=== PATIENT | female | born 1930 | race Caucasian/White ===

== ENCOUNTER 2017-09-01 14:12 | Emergency (ER) | payer OTHER ==
[2017-09-01] MEDS ORDERED: NA CHLORIDE 0.9% 1,000 ML ONE (14:28)
--- NOTE | 2017-09-01 15:00 | RAD REPORT ---
EXAM DESCRIPTION: CT - Head C Spine Mpr Wo Con - 09/01/2017 2:44 pm CLINICAL HISTORY: Head and neck injury status post fall. Head and neck pain COMPARISON: 2016 TECHNIQUE: Computed axial tomography of the head and cervical spine was obtained. Sagittal and coronal reconstruction was performed. All CT scans are performed using dose optimization technique as appropriate and may include automated exposure control or mA/KV adjustment according to patient size. FINDINGS: An intracranial bleed is not seen. The ventricles are normal in caliber. Mild to moderate low-density areas within periventricular, deep and subcortical white matter likely represent ischemic changes secondary to small vessel disease. An extra-axial fluid collection is not noted. Fluid within the visualized sinuses and mastoids is not seen A cervical fracture is not visualized. Mild posterior subluxation of C3 on C4 is present. No soft tissue swelling is seen. Spondylosis involves mid and distal cervical spine. Mild foraminal and central spinal stenosis is see n IMPRESSION: No acute intracranial abnormality is seen. A cervical fracture is not visualized. Mild anterior subluxation of C3 on C4. If the patient continue s to have symptoms to suggest intracranial /spinal cord/ ligamentous pathology then MRI would be anika mmended
[2017-09-01 15:35] LABS: Protime INR 0.99
[2017-09-01 15:46] LABS: Potassium 4.1 mEq/L (3.6-5.0)
--- NOTE | 2017-09-01 15:47 | EKG ---
Test Date: 2017-09-01 Test Time: 15:05:55 Dock Clerk: HERVE MEASUREMENT RESULTS: Intervals: Rate: 66 [place]: 168 QRSD: 78 QT: 414 QTc: 434 [place]: P: 58 NJ: 168 QRS: -40 T: 36 INTERPRETIVE STATEMENTS: Normal sinus rhythm Left axis deviation Abnormal ECG Compared to ECG 12/28/2015 00:53:10 Left-axis deviation now present Atrial premature complex(es) no longer present Electronically Signed On 09-01-17 15:47:19 CDT by Wale Rhodes
[2017-09-01 15:52] LABS: Bilirubin Direct 0.1 mg/dL (0-0.2); Bilirubin Total 0.5 mg/dL (0.3-1.2); Magnesium 1.9 mg/dL (1.8-2.5); Protein, Total 7.4 g/dL (6.0-8.3)
[2017-09-01 15:54] LABS: CKMB Creatine Kinase MB 6.2 ng/ml (0.3-4.0)
[2017-09-01] MEDS ORDERED: ACETAMINOPHEN 325 MG TABLET ONE (15:56)
[2017-09-01 16:18] LABS: Absolute Lymphocytes (CBC) 1.7 K/uL (0.7-4.9); Absolute Monocytes 0.4 K/uL (0.1-1.3); Absolute Neutrophil 3.1 K/uL (1.8-8.0); Basophils % 0.7 % (0-1.3); Eosinophils % 2.5 % (0-4.4); Hematocrit 29.9 % (36.0-45.0); Lymphocytes % 30.6 % (15.3-44.8); MCH 31.4 pg (27.0-35.0); MCV 91.9 fL (80-100); MPV 7.8 fL (7.6-11.3); Monocytes % 8.2 % (3.3-12.3); RBC Red Blood Cell Count 3.26 M/uL (3.86-4.86)
[2017-09-01] MEDS ORDERED: CEFTRIAXONE/SWI 1gm 1 GM/10 ML SYR ONE (17:31)
--- NOTE | 2017-09-01 18:02 | RAD REPORT ---
EXAM DESCRIPTION: MRI - C Spine Wo Cont - 09/01/2017 5:30 pm CLINICAL HISTORY: Left arm numbness. Neck injury status post fall COMPARISON: September 01, 2017 cat scan TECHNIQUE: Magnetic resonance imaging of the cervical spine was obtained with coronal and sagittal r econstruction FINDINGS: C2-3 level is unremarkable Mild anterior subluxation of C3 on C4 is seen. No abnormal signal is seen within the ligaments to sug gest an acute injury .Small disc bulge is present. Minimal narrowing of the thecal sac is seen. Small osteophytes are noted. Minimal narrowing the right neural foramina is present. C4-5 disc is thinned. Small to moderate central disc osteophyte complex narrows thecal sac which jordon ures 8 millimeters. Minimal narrowing of the neural foramina is noted. C5-6 disc is thinned. A moderate left posterolateral disc herniation is present. Osteophytes are note d. The left lateral recess and left neural foramina are narrowed. Small central disc osteophyte complex is present at C6-7. The thecal sac measures 7 millimeters. Mild narrowing of the neural foramina is noted. C7-T1 is unremarkable. The spinal cord demonstrates normal signal. No significant abnormal signal within the bones is noted. IMPRESSION: Moderate left posterolateral disc herniation C5-6 Small to moderate central disc osteophyte complex C4-5 Small central disc osteophyte complex C6-7 resulting in mild to moderate central spinal stenosis
--- NOTE | 2017-09-01 18:11 | RAD REPORT ---
EXAM DESCRIPTION: CT - Chest Abd Pelvis Wo Con - 09/01/2017 5:36 pm CLINICAL HISTORY: Chest and abdominal pain status post fall COMPARISON: 2013 CT chest TECHNIQUE: Computed axial tomography of the chest, abdomen and pelvis was obtained. Contrast was not requested All CT scans are performed using dose optimization technique as appropriate and may include automated exposure control or mA/KV adjustment according to patient size. FINDINGS: The evaluation of mediastinum, duane, vessels, bowel and solid organs is limited secondary to the lack of IV contrast administration A mediastinal hematoma is not seen. The ascending aorta measures 3.7 centimeters without significant change from the prior exam. The main pulmonary artery remains prominent. A pleural effusion is not present. A pericardial effusion is not seen. A pulmonary contusion is not present The liver, spleen, pancreas, and adrenals appear grossly normal. Renal cortical thinning is present b ilaterally. Extrarenal pelves are noted. The bladder appears grossly normal IMPRESSION: No acute traumatic injury involving the chest, abdomen/pelvis is seen
[2017-09-01 18:21] LABS: Urine Blood 1+ (NEG); Urine Glucose NEGATIVE (NEG); Urine Protein 3+ (NEG); Urine Specific Gravity 1.015 (1.005-1.030); Urine pH 6.5 (5.0-7.0)
--- NOTE | 2017-09-01 18:28 | EDPHYS ---
Physician Documentation [facility] Name: Evelia Neves Age: 87 yrs Sex: Female : 1930 Arrival Date: 09/01/2017 Time: 14:18 Bed 5 Private MD: ED Physician Adeel Cui HPI: 09/01 18:17 This 87 yrs old Female presents to ER via Ambulatory with complaints of Fall hortensia Injury, Dizziness, Nausea. 18:17 Details of fall: The patient fell from an upright position, while walking. Onset: The hortensia symptoms/episode began/occurred 4 day(s) ago. Associated injuries: The patient sustained neck injury, upper back injury, injury to the low back. Severity of symptoms: At their worst the symptoms were mild. Historical: - Allergies: 15:26 Codeine; ae1 15:26 Sulfa (Sulfonamide Antibiotics); ae1 - PMHx: 15:26 Hypertension; Hypothyroidism; ae1 - Immunization history:: Adult Immunizations up to date. - Social history:: Smoking status: Patient/guardian denies using tobacco. ROS: 18:18 Constitutional: Negative for fever, chills, and weight loss, Eyes: Negative for injury, hortensia pain, redness, and discharge, ENT: Negative for injury, pain, and discharge, Cardiovascular: Negative for chest pain, palpitations, and edema, Respiratory: Negative for shortness of breath, cough, wheezing, and pleuritic chest pain, Abdomen/GI: Negative for abdominal pain, nausea, vomiting, diarrhea, and constipation, : Negative for injury, bleeding, discharge, and swelling, MS/Extremity: Negative for injury and deformity, Skin: Negative for injury, rash, and discoloration, Neuro: Negative for headache, weakness, numbness, tingling, and seizure, Psych: Negative for depression, anxiety, suicide ideation, homicidal ideation, and hallucinations, Allergy/Immunology: Negative for hives, rash, and allergies, Endocrine: Negative for neck swelling, polydipsia, polyuria, polyphagia, and marked weight changes, Hematologic/Lymphatic: Negative for swollen nodes, abnormal bleeding, and unusual bruising. 18:18 Back: Positive for decreased range of motion, pain at rest. 18:18 MS/extremity: Positive for Exam: 18:18 Constitutional: This is a well developed, well nourished patient who is awake, alert, hortensia and in no acute distress. Head/Face: Normocephalic, atraumatic. Eyes: Pupils equal round and reactive to light, extra-ocular motions intact. Lids and lashes normal. Conjunctiva and sclera are non-icteric and not injected. Cornea within normal limits. Periorbital areas with no swelling, redness, or edema. ENT: Nares patent. No nasal discharge, no septal abnormalities noted. Tympanic membranes are normal and external auditory canals are clear. Oropharynx with no redness, swelling, or masses, exudates, or evidence of obstruction, uvula midline. Mucous membranes moist. Chest/axilla: Normal chest wall appearance and motion. Nontender with no deformity. No lesions are appreciated. Cardiovascular: Regular rate and rhythm with a normal S1 and S2. No gallops, murmurs, or rubs. Normal PMI, no JVD. No pulse deficits. Respiratory: Lungs have equal breath sounds bilaterally, clear to auscultation and percussion. No rales, rhonchi or wheezes noted. No increased work of breathing, no retractions or nasal flaring. Back: No spinal tenderness. No costovertebral tenderness. Full range of motion. Female : Normal external genitalia. Skin: Warm, dry with normal turgor. Normal color with no rashes, no lesions, and no evidence of cellulitis. MS/ Extremity: Pulses equal, no cyanosis. Neurovascular intact. Full, normal range of motion. Neuro: Awake and alert, GCS 15, oriented to person, place, time, and situation. Cranial nerves II-XII grossly intact. Motor strength 5/5 in all extremities. Sensory grossly intact. Cerebellar exam normal. Normal gait. Psych: Awake, alert, with orientation to person, place and time. Behavior, mood, and affect are within normal limits. 18:18 Neck: C-spine: appears grossly normal, no acute changes, Thyroid: appears normal, Trachea: is midline with no obvious abnormalities. 18:18 Abdomen/GI: Inspection: abdomen appears normal, Bowel sounds: normal, Palpation: mild abdominal tenderness, in the suprapubic area. Vital Signs: 15:24 BP 151 / 72; Pulse 75; Resp 17; Temp 97.8(O); Pulse Ox 100% on R/A; ae1 16:30 BP 181 / 77; Pulse 82; Resp 18; Pulse Ox 100% ; ae1 MDM: 14:21 Patient medically screened. [facility] 09/01 14:23 Order name: Basic Metabolic Panel; Complete Time: 16:54 [facility] 09/01 14:23 Order name: BNP; Complete Time: 16:54 [facility] 09/01 14:23 Order name: CBC with Diff; Complete Time: 16:54 [facility] 09/01 14:23 Order name: Ckmb; Complete Time: 16:54 [facility] 09/01 14:23 Order name: CPK; Complete Time: 16:54 [facility] 09/01 14:23 Order name: LFT's; Complete Time: 16:54 [facility] 09/01 14:23 Order name: Magnesium; Complete Time: 16:54 [facility] 09/01 14:23 Order name: PT-INR; Complete Time: 16:54 [facility] 09/01 14:23 Order name: Ptt, Activated; Complete Time: 16:54 [facility] 09/01 14:23 Order name: Troponin (emerg Dept Use Only); Complete Time: 16:54 [facility] 09/01 14:23 Order name: XRAY Chest (1 view) 09/01 14:23 Order name: Lipase; Complete Time: 16:54 [facility] 09/01 14:23 Order name: Urine Culture 09/01 18:18 Order name: Urine Dipstick--Ancillary (enter results); Complete Time: 18:22 09/01 14:23 Order name: EKG; Complete Time: 14:24 [facility] 09/01 14:23 Order name: Cardiac monitoring; Complete Time: 15:24 [facility] 09/01 14:23 Order name: EKG - Nurse/Tech; Complete Time: 15:24 [facility] 09/01 14:23 Order name: IV Saline Lock; Complete Time: 15:24 [facility] 09/01 14:23 Order name: Labs collected and sent; Complete Time: 15:24 [facility] 09/01 14:23 Order name: O2 Per Protocol; Complete Time: 15:24 [facility] 09/01 14:23 Order name: O2 Sat Monitoring; Complete Time: 15:24 [facility] 09/01 14:23 Order name: Urine Dipstick-Ancillary (obtain specimen); Complete Time: 18:32 [facility] 09/01 14:32 Order name: CT Head C Spine; Complete Time: 16:54 [facility] 09/01 15:45 Order name: Labs - recollect needed; Complete Time: 16:06 09/01 17:03 Order name: C Spine Wo Cont; Complete Time: 18:15 EDSD 09/01 17:12 Order name: CT Chest Abdomen Pelvis W/O Contrast: no oral , no iv; Complete Time: 18:15 [facility] 09/01 16:58 Order name: Bladder Scanner: pvr greater than 100, place benson; Complete Time: 18:31 [facility] 09/01 18:22 Order name: PO challenge; Complete Time: 18:26 [facility] Administered Medications: 15:23 Drug: NS 0.9% 1000 ml Route: IV; Rate: 125 ml/hr; Site: left antecubital; ae1 16:00 Drug: Tylenol 650 mg Route: PO; ae1 18:26 Follow up: Response: Pain is decreased ae1 18:26 Drug: Rocephin - (cefTRIAXone) 1 grams Route: IVPB; Infused Over: 30 mins; Site: left ae1 antecubital; Disposition: 09/01/17 18:27 Discharged to Home. Impression: Fall due to bumping against object, Weakness, Cystitis, Superficial injury of head, Essential (primary) hypertension. - Condition is Stable. - Discharge Instructions: Dysuria, Fall Prevention and Home Safety, Weakness, Fatigue, Fall Prevention and Home Safety, [id number]-wa-[id number], Weakness, [id number]. - Prescriptions for Cipro 250 mg Oral Tablet - take 1 tablet by ORAL route every 12 hours; 14 tablet. - Medication Reconciliation Form, Thank You Letter, Antibiotic Education, Prescription Opioid Use form. - Follow up: Private Physician; When: 2 - 3 days; Reason: Recheck today's complaints, Re-evaluation by your physician. - Problem is new. - Symptoms have improved. Signatures: Dispatcher [employer] [facility] Adeel Cui MD MD cha Gallardo, Ana ag Elliott, Andrea, RN RN ae1 Corrections: (The following items were deleted from the chart) 14:33 14:24 Head Brain Wo Cont+CT.RAD.BRZ ordered. [facility] 18:28 18:27 09/01/2017 18:27 Discharged to Home. Impression: Fall due to bumping against hortensia object; Weakness; Cystitis; Superficial injury of head. Condition is Stable. Forms are Medication Reconciliation Form, Thank You Letter, Antibiotic Education, Prescription Opioid Use. Follow up: Private Physician; When: 2 - 3 days; Reason: Recheck today's complaints, Re-evaluation by your physician. Problem is new. Symptoms have improved. [facility] 18:49 18:28 09/01/2017 18:27 Discharged to Home. Impression: Fall due to bumping against ae1 object; Weakness; Cystitis; Superficial injury of head; Essential (primary) hypertension. Condition is Stable. Discharge Instructions: Dysuria, Fall Prevention and Home Safety, Weakness, Fatigue, Fall Prevention and Home Safety, [id number], Weakness, Zibl-ey-[id number]. Prescriptions for Cipro 250 mg Oral Tablet - take 1 tablet by ORAL route every 12 hours; 14 tablet. and Forms are Medication Reconciliation Form, Thank You Letter, Antibiotic Education, Prescription Opioid Use. Follow up: Private Physician; When: 2 - 3 days; Reason: Recheck today's complaints, Re-evaluation by your physician. Problem is new. Symptoms have improved. [facility]
--- NOTE | 2017-09-01 18:28 | ER ---
Nurse's Notes [facility] Name: Evelia Neves Age: 87 yrs Sex: Female : 1930 Arrival Date: 09/01/2017 Time: 14:18 Bed 5 Private MD: Diagnosis: Fall due to bumping against object;Weakness;Cystitis;Superficial injury of head;Essential (primary) hypertension Presentation: 09/01 14:33 Presenting complaint: Patient states: "I fell on August 28, hit the back of my head and jl7 now my whole body is hurting from my head to my toes." Denies LOC. Care prior to arrival: None. 14:33 Acuity: CHAVA 3 jl7 14:33 Method Of Arrival: Ambulatory 7 18:48 Transition of care: patient was not received from another setting of care. Onset of ae1 symptoms was August 28, 2017. Initial Sepsis Screen: Does the patient meet any 2 criteria? No. Patient's initial sepsis screen is negative. Does the patient have a suspected source of infection? No. Patient's initial sepsis screen is negative. Triage Assessment: 17:32 General: Appears in no apparent distress. ae1 Historical: - Allergies: 15:26 Codeine; ae1 15:26 Sulfa (Sulfonamide Antibiotics); ae1 - PMHx: 15:26 Hypertension; Hypothyroidism; ae1 - Immunization history:: Adult Immunizations up to date. - Social history:: Smoking status: Patient/guardian denies using tobacco. Screenin:24 Abuse screen: Denies threats or abuse. Nutritional screening: No deficits noted. ae1 Tuberculosis screening: No symptoms or risk factors identified. Fall Risk None identified. Assessment: 14:25 Reassessment: Dr. Cui at bedside. jl7 14:30 General: Appears in no apparent distress. comfortable, slender, well groomed, Behavior ae1 is calm, cooperative, quiet. Pain: Denies pain. Neuro: Level of Consciousness is awake, alert, obeys commands, Oriented to person, place, time, situation. Cardiovascular: Heart tones S1 S2 present Patient's skin is warm and dry. Respiratory: Airway is patent Respiratory effort is even, unlabored, Respiratory pattern is regular, symmetrical, Breath sounds are clear bilaterally. Breath sounds are diminished bilaterally. GI: Reports nausea. : Reports urgency, urinary frequency, foul urine odor. EENT: wears glasses. Derm: Skin is dry, Skin is pale, Skin temperature is warm. Musculoskeletal: No signs and/or symptoms reported regarding the musculoskeletal system. 14:32 Reassessment: Pt to CT. jl7 15:06 Reassessment: Patient appears in no apparent distress at this time. Radiology at ae1 bedside obtaining chest x-ray. 16:24 Reassessment: Patient appears in no apparent distress at this time. Patient and/or ae1 family updated on plan of care and expected duration. Pain level reassessed. Vital Signs: 15:24 BP 151 / 72; Pulse 75; Resp 17; Temp 97.8(O); Pulse Ox 100% on R/A; ae1 16:30 BP 181 / 77; Pulse 82; Resp 18; Pulse Ox 100% ; ae1 ED Course: 14:18 Patient arrived in ED. mr 14:21 Adeel Cui MD is Attending Physician. [facility] 14:21 Solomon Trevino, DOMONIQUE is Primary Nurse. ae1 14:35 Triage completed. jl7 14:44 CT Head C Spine In Process Unspecified. EDMS 14:46 CT completed. Patient tolerated procedure well. Patient moved back from CT. nj 15:06 Arm band placed on right wrist. ae1 15:10 X-ray completed. Portable x-ray completed in exam room. Patient tolerated procedure mh1 well. 15:12 XRAY Chest (1 view) In Process Unspecified. EDMS 15:26 Placed in gown. Bed in low position. Call light in reach. Side rails up X 1. Adult w/ ae1 patient. quality assurance monitor body on. Pulse ox on. NIBP on. Warm blanket given. 15:26 Inserted saline lock: 22 gauge in left antecubital area, using aseptic technique. Blood ae1 collected. 15:34 EKG done, by windows laptop technician. reviewed by Adeel Cui MD. at1 17:18 Patient moved to MRI via wheelchair. em2 17:19 C Spine Wo Cont In Process Unspecified. EDMS 17:35 CT Chest Abdomen Pelvis W/O Contrast: no oral , no iv In Process Unspecified. EDMS 17:38 MRI completed. Patient tolerated well. Patient moved to CT. em2 18:48 No provider procedures requiring assistance completed. IV discontinued, intact, ae1 bleeding controlled, No redness/swelling at site. Pressure dressing applied. Administered Medications: 15:23 Drug: NS 0.9% 1000 ml Route: IV; Rate: 125 ml/hr; Site: left antecubital; ae1 16:00 Drug: Tylenol 650 mg Route: PO; ae1 18:26 Follow up: Response: Pain is decreased ae1 18:26 Drug: Rocephin - (cefTRIAXone) 1 grams Route: IVPB; Infused Over: 30 mins; Site: left ae1 antecubital; Outcome: 18:27 Discharge ordered by . hortensia 18:49 Discharged to home via wheelchair, with significant other. ae1 18:49 Condition: stable 18:49 Discharge instructions given to patient, Instructed on discharge instructions, follow up and referral plans. Demonstrated understanding of instructions, Prescriptions given X 1. 18:49 Patient left the ED. ae1 Signatures: Dispatcher [employer] EDMS Adeel Cui MD MD cha Rivera, Maria Kanika Coleman mh1 Saroj Lancaster em2 Sherly copeland, pododermatologist EKG Tat1 Solomon Trevino, DOMONIQUE RN ae1 John Chambers Jahala, RN RN jl7 Corrections: (The following items were deleted from the chart) 18:31 18:29 Reassessment: Patient assisted to bathroom via wheelchair and walker once in the ae1 restroom, ae1
--- NOTE | 2017-09-01 18:33 | RAD REPORT ---
EXAM DESCRIPTION: Bird Single View09/01/2017 3:11 pm CLINICAL HISTORY: Chest pain COMPARISON: 2016 FINDINGS: Areas of scarring are present within the lung bases. The lungs appear clear of acute infiltrate. The heart is normal size IMPRESSION: No acute abnormalities displayed
[2017-09-01 19:03] VITALS: TEMP 97.8; O2SAT 100
[2017-09-01 19:04] VITALS: BP 181/77
== END 2017-09-01 18:49 | disposition home or self-care (01) ==
LOC: ER 14:12
DX: S00.90XA Unspecified superficial injury of unspecified part of head, initial encounter (principal); N30.90 Cystitis, unspecified without hematuria; I10 Essential (primary) hypertension; E03.9 Hypothyroidism, unspecified; W18.09XA Striking against other object with subsequent fall, initial encounter; Y93.01 Activity, walking, marching and hiking; Y92.9 Unspecified place or not applicable; Z88.2 Allergy status to sulfonamides; Z88.5 Allergy status to narcotic agent
CPT/HCPCS: 36415; 70450; 71045; 71250; 72125; 72141; 74176; 80048; 80076; 81003; 82550; 82553; 83690; 83735; 83880; 84484; 85025; 85610; 85730; 87086; 87088; 93005; 96374; 99285; J0696; J7030

== ENCOUNTER 2018-01-22 10:33 | Observation (INO) | payer OTHER ==
[2018-01-22 11:11] LABS: Absolute Lymphocytes (CBC) 1.8 K/uL (0.7-4.9); Absolute Monocytes 0.3 K/uL (0.1-1.3); Basophils % 0.9 % (0-1.3); Eosinophils % 1.7 % (0-4.4); Hematocrit 33.1 % (36.0-45.0); Lymphocytes % 34.7 % (15.3-44.8); MCH 32.2 pg (27.0-35.0); MCV 91.4 fL (80-100); MPV 8.1 fL (7.6-11.3); Monocytes % 5.8 % (3.3-12.3); RBC Red Blood Cell Count 3.63 M/uL (3.86-4.86)
[2018-01-22] MEDS ORDERED: CEFTRIAXONE/SWI 1gm 1 GM/10 ML SYR ONE (11:12)
[2018-01-22] MEDS ORDERED: NA CHLORIDE 0.9% 500 ML ONE (11:12)
--- NOTE | 2018-01-22 11:26 | RAD REPORT ---
EXAM DESCRIPTION: CT - Head Brain Wo Cont - 01/22/2018 11:17 am CLINICAL HISTORY: ams Drowsiness COMPARISON: HEAD BRAIN W O CONTRAST dated 03/13/2014; HEAD BRAIN W O CONTRAST dated 10/15/2013 TECHNIQUE: All CT scans are performed using dose optimization technique as appropriate and may inclu de automated exposure control or mA/KV adjustment according to patient size. FINDINGS: No intracranial hemorrhage, hydrocephalus or extra-axial fluid collection.Moderate general ized brain atrophy is present with moderate periventricular and deep white matter chronic microvascul ar ischemic changes.No areas of brain edema or evidence of midline shift. Mild bony thickening in the right maxillary antrum wall is seen, incompletely assessed. The paranasal sinuses and mastoids are grossly clear. The calvarium is intact. IMPRESSION: No acute intracranial abnormality.
[2018-01-22 11:28] LABS: Protime INR 1.04
[2018-01-22 12:19] LABS: ALT/SGPT 14 U/L (12-78); AST/SGOT 22 U/L (15-37); Alkaline Phosphatase 97 U/L (45-117); BUN Blood Urea Nitrogen 76 mg/dL (7-18); Bicarbonate 18 mmol/L (21-32); Bilirubin Direct 0.1 mg/dL (0-0.2); Bilirubin Total 0.5 mg/dL (0.2-1.0); CKMB Creatine Kinase MB 3.5 ng/mL (0.3-3.6); Creatine Phosphokinase 115 U/L (26-192); Glucose Level 102 mg/dL (74-106); Lipase 1173 U/L (73-393); Magnesium 2.3 mg/dL (1.8-2.4); Potassium 4.4 mmol/L (3.5-5.1); Protein, Total 7.8 g/dL (6.4-8.2); Sodium Level 137 mmol/L (136-145); Troponin (Emerg Dept Use Only) < 0.02 ng/mL (0.0-0.045)
--- NOTE | 2018-01-22 13:14 | EKG ---
Test Date: 2018-01-22 Test Time: 11:03:03 Garnett Feeder: HERVE MEASUREMENT RESULTS: Intervals: Rate: 63 NM: 150 QRSD: 88 QT: 434 QTc: 444 [place]: P: 64 NM: 150 QRS: -52 T: 64 INTERPRETIVE STATEMENTS: Normal sinus rhythm Left anterior fascicular block Abnormal ECG Compared to ECG 09/01/2017 15:05:55 no significant change from previous ECG Electronically Signed On 01-22-18 13:14:13 CDT by Wale Rhodes
[2018-01-22 13:38] LABS: Barbiturates NEGATIVE (NEGATIVE); Benzodiazepines POSITIVE (NEGATIVE); Cocaine NEGATIVE (NEGATIVE); METHAMPHETAM NEGATIVE (NEGATIVE); Methadone NEGATIVE (NEGATIVE); Opiates NEGATIVE (NEGATIVE); Phencyclidine NEGATIVE (NEGATIVE); THC Cannibis NEGATIVE (NEGATIVE)
--- NOTE | 2018-01-22 14:36 | RAD REPORT ---
EXAM DESCRIPTION: US - Abdomen Exam Limited - 01/22/2018 2:28 pm CLINICAL HISTORY: Abdominal pain, pancreatitis history COMPARISON: None. FINDINGS: No gallstones, sludge or other abnormalities within the gallbladder lumen. There is no wal l thickening or pericholecystic fluid. No common duct stone or biliary tree dilatation identified. IMPRESSION: Normal gallbladder and biliary tree ultrasound.
--- NOTE | 2018-01-22 14:51 | ER ---
Nurse's Notes [facility] Name: Evelia Neves Age: 87 yrs Sex: Female : 1930 Arrival Date: 01/22/2018 Time: 10:34 Bed 20 Private MD: Diagnosis: Acute pancreatitis, unspecified Presentation: 01/22 10:35 Presenting complaint: EMS states: granddaughter called EMS to home, pt is apparently hj been noticed to have episodes of AMS, been seeing people, pt is A\T\O x2 on scene, reports to have decreased appetite and generalized weakness; BP- 190/100; BGL- 122; T- 98.0; HR- 62; SR; 18G R AC;. Transition of care: patient was not received from another setting of care. Onset of symptoms was January 22, 2018. Risk Assessment: Do you want to hurt yourself or someone else? Patient reports no desire to harm self or others. Initial Sepsis Screen: Does the patient meet any 2 criteria? No. Patient's initial sepsis screen is negative. Does the patient have a suspected source of infection? No. Patient's initial sepsis screen is negative. Care prior to arrival: IV initiated. 18 GA, in the right antecubital area. 10:35 Method Of Arrival: EMS: [facility] 10:35 Acuity: CHAVA 3 hj Triage Assessment: 10:42 General: Appears in no apparent distress. uncomfortable, Behavior is calm, cooperative, hj appropriate for age. Pain: Denies pain. EENT: No signs and/or symptoms were reported regarding the EENT system. Neuro: Level of Consciousness is awake, alert, obeys commands, Oriented to person, place, time, situation, Appropriate for age. Cardiovascular: Capillary refill < 3 seconds Patient's skin is warm and dry. Respiratory: Airway is patent Respiratory effort is even, unlabored, Respiratory pattern is regular, symmetrical. GI: No signs and/or symptoms were reported involving the gastrointestinal system. : No signs and/or symptoms were reported regarding the genitourinary system. : smells urine;. Derm: No signs and/or symptoms reported regarding the dermatologic system. Musculoskeletal: No signs and/or symptoms reported regarding the musculoskeletal system. Historical: - Allergies: 10:39 Codeine; hj 10:39 Sulfa (Sulfonamide Antibiotics); hj - Home Meds: 13:01 levothyroxine 100 mcg tab 1 tab once daily [Active]; sodium bicarbonate and sodium hj citrate oral oral [Active]; furosemide 40 mg Oral tab 1 tab 3 times per day [Active]; gabapentin 300 mg oral cap 1 cap 3 times per day [Active]; fluoxetine 40 mg Oral cap 1 cap once daily [Active]; - PMHx: 10:39 Hypertension; Hypothyroidism; hj - PSHx: 10:39 Unable to obtain; hj - Immunization history:: Adult Immunizations up to date. - Social history:: Smoking status: Patient/guardian denies using tobacco, Patient/guardian denies using alcohol, Patient/guardian denies using alcohol, street drugs, The patient lives with family. - Ebola Screening: : Patient negative for fever greater than or equal to 101.5 degrees Fahrenheit, and additional compatible Ebola Virus Disease symptoms Patient denies exposure to infectious person Patient denies travel to an Ebola-affected area in the 21 days before illness onset. - Family history:: not pertinent. Screenin:46 Abuse screen: Denies threats or abuse. Denies injuries from another. Nutritional hj screening: No deficits noted. Tuberculosis screening: No symptoms or risk factors identified. Fall Risk None identified. Assessment: 10:47 Reassessment: see triage for assessment; provider in room;. hj 11:16 Reassessment: Patient and/or family updated on plan of care and expected duration. Pain hj level reassessed. Patient is alert, oriented x 3, equal unlabored respirations, skin warm/dry/pink. wheeled to XRAY;. 12:48 Reassessment: Patient and/or family updated on plan of care and expected duration. Pain hj level reassessed. Patient is alert, oriented x 3, equal unlabored respirations, skin warm/dry/pink. in room;. 13:08 Reassessment: Patient and/or family updated on plan of care and expected duration. Pain hj level reassessed. Patient is alert, oriented x 3, equal unlabored respirations, skin warm/dry/pink. in the bathroom with daughter for urine sample;. 13:23 Reassessment: Patient and/or family updated on plan of care and expected duration. Pain hj level reassessed. Patient is alert, oriented x 3, equal unlabored respirations, skin warm/dry/pink. awaiting results and POC;. 14:13 Reassessment: Patient and/or family updated on plan of care and expected duration. Pain hj level reassessed. Patient is alert, oriented x 3, equal unlabored respirations, skin warm/dry/pink. granddaughter Lavinia called; to call her back for f/u info; ([phone]). 14:17 Reassessment: Us tech in room;. hj 15:10 Reassessment: awaiting room placement;. hj 16:01 Reassessment: Patient and/or family updated on plan of care and expected duration. Pain hj level reassessed. Patient is alert, oriented x 3, equal unlabored respirations, skin warm/dry/pink. awaiting room placement; no other concers;. 16:32 Reassessment: Patient and/or family updated on plan of care and expected duration. Pain hj level reassessed. Patient is alert, oriented x 3, equal unlabored respirations, skin warm/dry/pink. provided snacks of sand which and apple juice;. Vital Signs: 10:45 BP 190 / 74; Pulse 66; Resp 18; Temp 98.3(O); Pulse Ox 100% on R/A; Weight 58.97 kg; hj Height 5 ft. 4 in. (162.56 cm); Pain 0/10; 12:15 BP 197 / 65; Pulse 64; Resp 18; Pulse Ox 100% on R/A; hj 12:49 BP 196 / 68; Pulse 63; Resp 18; Pulse Ox 100% on R/A; hj 13:24 BP 195 / 65; Pulse 65; Resp 18; Pulse Ox 100% on R/A; hj 14:47 BP 189 / 69; Pulse 67; Resp 18; Pulse Ox 100% on R/A; hj 15:00 BP 188 / 74; Pulse 69; Resp 18; Pulse Ox 100% on R/A; hj 16:02 BP 188 / 70; Pulse 68; Resp 18; Pulse Ox 100% on R/A; hj 10:45 Body Mass Index 22.31 (58.97 kg, 162.56 cm) ED Course: 10:34 Patient arrived in ED. hj 10:38 Triage completed. hj 10:44 Rachel Nicole MD is Attending Physician. ma2 10:46 Arm band placed on right wrist. hj 10:46 Patient has correct armband on for positive identification. Bed in low position. Call hj light in reach. Side rails up X2. 10:46 Maintain EMS IV. Dressing intact. Good blood return noted. Site clean \T\ dry. Gauge \T\ hj site: 18g R AC;. 10:52 Carlito Friedman, DOMONIQUE is Primary Nurse. hj 11:[address] via stretcher. sw 11:13 First set of blood cultures drawn by me, by venipuncture 23G to left ac. dh3 11:16 CT completed. Patient tolerated procedure well. Patient moved back from CT. sw 11:17 CT Head Brain wo Cont In Process Unspecified. EDMS 11:30 Second set of blood cultures drawn by me, by venipuncture 23G to left ac. dh3 14:16 Abdomen Limited US In Process Unspecified. EDMS 14:17 Ultrasound completed. Patient tolerated well. Note: DONE PORTABLE/ER. aa4 14:50 Tanner Xie DO is Hospitalizing Provider. ma2 17:09 No provider procedures requiring assistance completed. Patient admitted, IV remains in hj place. intact. Administered Medications: 10:51 Drug: NS 0.9% 500 ml Route: IV; Rate: 500 bolus; Site: right antecubital; hj 12:00 Follow up: IV Status: Completed infusion; IV Intake: 500ml hj 11:25 Drug: Rocephin 1 grams Route: IV; Rate: calculated rate; Site: right antecubital; hj 11:45 Follow up: IV Status: Completed infusion hj Intake: 12:00 IV: 500ml; Total: 500ml. Outcome: 14:51 Decision to Hospitalize by Provider. ma2 17:09 Admitted to Tele accompanied by tech, via wheelchair, room 405, with chart, Report hj called to DOMONIQUE Durand 17:09 Condition: stable 17:09 Instructed on the need for admit, Demonstrated understanding of instructions. 17:10 Patient left the ED. Signatures: Dispatcher [employer] EDMS Sherly Monahan aa4 Lavinia Novak Carlito Friedman RN RN hj Herrera, Deanna 3 Rachel Nicole MD MD ma2
--- NOTE | 2018-01-22 14:52 | EDPHYS ---
Physician Documentation [facility] Name: Evelai Neves Age: 87 yrs Sex: Female : 1930 Arrival Date: 01/22/2018 Time: 10:34 Bed 20 Private MD: ED Physician Rachel Nicole HPI: 01/22 11:14 This 87 yrs old Female presents to ER via EMS with complaints of Altered ma2 Mental Status. 11:14 The patient presents with confusion, trouble concentrating. Onset: The symptoms/episode ma2 began/occurred gradually, 3 day(s) ago. Possible causes: drug use, head injury, low blood sugar, sepsis, unknown. Associated signs and symptoms: Pertinent positives: dysuria , Pertinent negatives: abdominal pain, agitation, ataxia, combativeness, diaphoresis, diarrhea, dizziness, headache, numbness, not shortness of breath, vomiting, weakness. Current symptoms: In the emergency department the patient's symptoms are unchanged from the initial presentation. [facility] grand daughter called that she is confused and been sleepy all the time she has bad urine smell, does not answer all question . Historical: - Allergies: 10:39 Codeine; hj 10:39 Sulfa (Sulfonamide Antibiotics); hj - Home Meds: 13:01 levothyroxine 100 mcg tab 1 tab once daily [Active]; sodium bicarbonate and sodium hj citrate oral oral [Active]; furosemide 40 mg Oral tab 1 tab 3 times per day [Active]; gabapentin 300 mg oral cap 1 cap 3 times per day [Active]; fluoxetine 40 mg Oral cap 1 cap once daily [Active]; - PMHx: 10:39 Hypertension; Hypothyroidism; hj - PSHx: 10:39 Unable to obtain; hj - Immunization history:: Adult Immunizations up to date. - Social history:: Smoking status: Patient/guardian denies using tobacco, Patient/guardian denies using alcohol, Patient/guardian denies using alcohol, street drugs, The patient lives with family. - Ebola Screening: : Patient negative for fever greater than or equal to 101.5 degrees Fahrenheit, and additional compatible Ebola Virus Disease symptoms Patient denies exposure to infectious person Patient denies travel to an Ebola-affected area in the 21 days before illness onset. - Family history:: not pertinent. ROS: 11:14 ENT: Negative for injury, pain, and discharge, Abdomen/GI: Negative for abdominal pain, ma2 nausea, diarrhea, and constipation, Back: Negative for injury and pain, MS/Extremity: Negative for injury and deformity, Skin: Negative for injury, rash, and discoloration, Neuro: Negative for headache, weakness, numbness, tingling, and seizure, Allergy/Immunology: Negative for hives, rash, and allergies. 11:14 Constitutional: Positive for malaise. 11:14 Constitutional: Negative for body aches, chills, fever. 11:14 : Positive for urinary symptoms, Negative for flank pain, vaginal discharge, vaginal itching. Exam: 11:14 ENT: Nares patent. No nasal discharge, no septal abnormalities noted. Tympanic ma2 membranes are normal and external auditory canals are clear. Oropharynx with no redness, swelling, or masses, exudates, or evidence of obstruction, uvula midline. Mucous membranes moist. Neck: Trachea midline, no thyromegaly or masses palpated, and no cervical lymphadenopathy. Supple, full range of motion without nuchal rigidity, or vertebral point tenderness. No Meningismus. Chest/axilla: Normal chest wall appearance and motion. Nontender with no deformity. No lesions are appreciated. Cardiovascular: Regular rate and rhythm with a normal S1 and S2. No gallops, murmurs, or rubs. Normal PMI, no JVD. No pulse deficits. Respiratory: Lungs have equal breath sounds bilaterally, clear to auscultation and percussion. No rales, rhonchi or wheezes noted. No increased work of breathing, no retractions or nasal flaring. Abdomen/GI: Soft, non-tender, with normal bowel sounds. No distension or tympany. No guarding or rebound. No evidence of tenderness throughout. 11:14 Constitutional: The patient appears alert, confused 11:14 Neuro: Orientation: is normal, Mentation: is normal, confused, awake, Memory: appropriate for stated age, Cranial nerves: grossly normal, Motor: is normal, Sensation: is normal. Vital Signs: 10:45 BP 190 / 74; Pulse 66; Resp 18; Temp 98.3(O); Pulse Ox 100% on R/A; Weight 58.97 kg; hj Height 5 ft. 4 in. (162.56 cm); Pain 0/10; 12:15 BP 197 / 65; Pulse 64; Resp 18; Pulse Ox 100% on R/A; hj 12:49 BP 196 / 68; Pulse 63; Resp 18; Pulse Ox 100% on R/A; hj 13:24 BP 195 / 65; Pulse 65; Resp 18; Pulse Ox 100% on R/A; hj 14:47 BP 189 / 69; Pulse 67; Resp 18; Pulse Ox 100% on R/A; hj 15:00 BP 188 / 74; Pulse 69; Resp 18; Pulse Ox 100% on R/A; hj 16:02 BP 188 / 70; Pulse 68; Resp 18; Pulse Ox 100% on R/A; hj 10:45 Body Mass Index 22.31 (58.97 kg, 162.56 cm) hj MDM: 10:44 Patient medically screened. ma2 11:14 Differential Diagnosis: electrolyte abnormality, alcohol intoxication, hypoglycemia, ma2 intracranial bleed, sepsis, UTI, volume depletion. Data reviewed: vital signs, nurses notes, lab test result(s). Counseling: I had a detailed discussion with the patient and/or guardian regarding: the historical points, exam findings, and any diagnostic results supporting the discharge/admit diagnosis, the presence of at least one elevated blood pressure reading (>120/80) during this emergency department visit, the need for further work-up and treatment in the hospital. Response to treatment: the patient's symptoms have markedly improved after treatment. 14:49 ED course: acute pancreatitis discussed with dr. Xie, . or2 01/22 10:51 Order name: UDS; Complete Time: 14:03 2 01/22 10:51 Order name: Basic Metabolic Panel; Complete Time: 12:35 2 01/22 10:51 Order name: CBC with Diff; Complete Time: 12:21 2 01/22 10:51 Order name: Ckmb; Complete Time: 12:35 ma2 01/22 10:51 Order name: CPK; Complete Time: 12:35 2 01/22 10:51 Order name: Hepatic Function; Complete Time: 12:35 2 01/22 10:51 Order name: Lipase; Complete Time: 12:35 ma2 01/22 10:51 Order name: Magnesium; Complete Time: 12:35 ma2 01/22 10:51 Order name: Protime (+inr); Complete Time: 12:21 ma2 01/22 10:51 Order name: Ptt, Activated; Complete Time: 12:21 or2 01/22 10:51 Order name: Troponin (emerg Dept Use Only); Complete Time: 12:35 ma2 01/22 10:51 Order name: Lactate; Complete Time: 12:21 or2 01/22 10:51 Order name: Blood Culture Adult (2) or2 01/22 14:47 Order name: Urine Dipstick--Ancillary (enter results) bd 01/22 15:43 Order name: T4 Free EDOR 01/22 15:43 Order name: Thyroid Stimulating Hormone EDOR 01/22 15:43 Order name: Comprehensive Metabolic Panel EDOR 01/22 15:43 Order name: Comprehensive Metabolic Panel [facility] 01/22 15:43 Order name: Comprehensive Metabolic Panel [facility] 01/22 15:43 Order name: Comprehensive Metabolic Panel EDOR 01/22 15:43 Order name: Lipase EDMS 01/22 15:43 Order name: Lipase EDMS 01/22 15:43 Order name: Lipase EDMS 01/22 15:43 Order name: Lipase EDMS 01/22 15:43 Order name: Lipid Profile EDMS 01/22 15:43 Order name: Lipid Profile EDMS 01/22 15:43 Order name: Magnesium EDMS 01/22 15:43 Order name: Magnesium EDMS 01/22 15:43 Order name: Magnesium EDMS 01/22 15:43 Order name: Magnesium EDMS 01/22 10:51 Order name: CT Head Brain wo Cont; Complete Time: 12:21 [facility] 01/22 10:51 Order name: EKG; Complete Time: 10:52 or2 01/22 10:51 Order name: Cardiac monitoring; Complete Time: 10:52 or2 01/22 10:51 Order name: EKG - Nurse/Tech; Complete Time: 11:09 ma2 01/22 10:51 Order name: IV Saline Lock; Complete Time: 11:10 ma2 01/22 10:51 Order name: Labs collected and sent; Complete Time: 11:10 ma2 01/22 10:51 Order name: NPO; Complete Time: 10:53 ma2 01/22 10:51 Order name: O2 Per Protocol; Complete Time: 10:53 or2 01/22 10:51 Order name: O2 Sat Monitoring; Complete Time: 10:53 ma2 01/22 10:51 Order name: Urine Dipstick-Ancillary (obtain specimen); Complete Time: 13:16 [facility] 01/22 14:06 Order name: Abdomen Limited US; Complete Time: 14:45 [facility] 01/22 15:43 Order name: Blood Culture [facility] 01/22 15:43 Order name: Urine Culture [facility] 01/22 15:44 Order name: CONS Physician Consult [facility] 01/22 15:44 Order name: Renal EDOR Administered Medications: 10:51 Drug: NS 0.9% 500 ml Route: IV; Rate: 500 bolus; Site: right antecubital; 12:00 Follow up: IV Status: Completed infusion; IV Intake: 500ml 11:25 Drug: Rocephin 1 grams Route: IV; Rate: calculated rate; Site: right antecubital; 11:45 Follow up: IV Status: Completed infusion Disposition: 01/22/18 14:51 Hospitalization ordered by Tanner Xie for Observation. Preliminary diagnosis is Acute pancreatitis, unspecified. - Bed requested for Telemetry/MedSurg (observation). - Status is Observation. - Condition is Stable. - Problem is new. - Symptoms are unchanged. UTI on Admission? No Signatures: Dispatcher [employer] Val Mosquera RN RN dw Nieto, Roman, MD MD rn Joaquin, Henry, RN RN hj Alzahri, Mohammad, MD MD ma2 Corrections: (The following items were deleted from the chart) 16:53 14:51 Hospitalization Ordered by Tanner Xie DO for Observation. Preliminary diagnosis is Acute pancreatitis, unspecified. Bed requested for Telemetry/MedSurg (observation). Status is Observation. Condition is Stable. Problem is new. Symptoms are unchanged. UTI on Admission? No. ma2 17:10 16:53 01/22/2018 14:51 Hospitalization Ordered by Tanner Xie DO for Observation. Preliminary diagnosis is Acute pancreatitis, unspecified. Bed requested for Telemetry/MedSurg (observation). Status is Observation. Condition is Stable. Problem is new. Symptoms are unchanged. UTI on Admission? No. dw
[2018-01-22] MEDS ORDERED: GABAPENTIN 300 MG CAP PO PRN (15:33)
[2018-01-22] MEDS ORDERED: ONDANSETRON 4 MG/2 ML VIAL IV PRN (15:33)
--- NOTE | 2018-01-22 15:51 | P.HP ---
Certification for Inpatient Patient admitted to: Observation With expected LOS: <2 Midnights Patient will require the following post-hospital care: None Practitioner: I am a practitioner with admitting privileges, knowledge of patient current condition, hospital course, and medical plan of care. Services: Services provided to patient in accordance with Admission requirements found in Title 42 Section 412.3 of the Code of Federal Regulations Patient History Date of Service: 01/22/18 Primary Care Provider: Dr. Pereira Reason for admission: Fatigue and confusion History of Present Illness: 87-year-old female presented to the emergency room with fatigue and possible confusion. Most information came from the ER physician and patient. Patient reports that she has been feeling weak over the last several days. Some nausea but no vomiting noted. She has had poor appetite. No abdominal pain noted. Blood pressures have been elevated. Patient with end-stage renal disease. Patient does not desire to be on dialysis. She also reports some swelling to her eyes with exudate. Family has reported some confusion. In the ER patient evaluated. Head CT unremarkable. Abdominal ultrasound unremarkable. Lipase elevated at 1173. White count 5.3, hemoglobin 11.7. BUN of 76, creatinine 5.2 with a GFR of 8. Bicarb 18. Glucose 102. Sodium 137, potassium 4.4. Patient was admitted for further evaluation. When I saw the patient ER, she appeared comfortable. No confusion was noted. She was able to answer questions appropriately. Patient understands that she has end-stage renal disease. She does not desire dialysis. She recently saw all her PCP to adjust medication. She is to be taking Lasix 40 mg 3 times a day but only takes it as needed. Other medications include sodium bicarbonate, levothyroxine and Prozac. Blood pressures were elevated in the ER. This has been monitored as an outpatient. She does not take medication for this. Allergies codeine [Codeine] Allergy (Intermediate, Verified 12/30/15 13:57) Itching Sulfa (Sulfonamide Antibiotics) Allergy (Intermediate, Verified 12/30/15 13:57) Itching/Hives/Rash Penicillins Allergy (Verified 12/30/15 13:57) Itching/Hives/Rash Home medications list reviewed: Yes Home Medications: Aspirin [Aspirin EC 81 MG] 81 mg PO DAILY #30 tablet. 03/15/14 Acetaminophen [Acetaminophen ER] 650 mg PO Q4HR PRN 12/26/15 Astaxanthin 4 mg PO DAILY 12/26/15 Bisacodyl [Women's Laxative] 5 mg PO Q8HR PRN 12/26/15 Cholecalciferol (Vitamin D3) [Vitamin D 1000 Iu Tab*] 1,000 unit PO DAILY Coconut Oil 2,000 mg PO DAILY 12/26/15 Magnesium Oxide [Magnesium] 500 mg PO DAILY 12/26/15 Na Phos,M-B/Na Phos,Di-Ba [Fleet Phospho-Soda Solution] 45 ml PO BID PRN Simethicone [Gas Relief] 125 mg PO Q4HR PRN 12/26/15 Tetrahydrozoline HCl [Eye Drops] 1 drop EACH EYE DAILY 12/26/15 Ubidecarenone [Co Q-10] 200 mg PO DAILY 12/26/15 Vitamin E Acid Succinate [Vitamin E] 400 mg PO DAILY 12/26/15 diphenhydrAMINE HCl [Diphenhydramine HCl] 25 mg PO BEDTIME PRN 12/26/15 ALPRAZolam [Xanax*] 0.5 mg PO BID PRN #40 tab 01/12/16 Apixaban [Eliquis *] 2.5 mg PO BID #60 tablet 01/12/16 Docusate/Senna [Senokot-S*] 2 tab PO BEDTIME PRN #60 tab 01/12/16 Fluoxetine HCl [Prozac] 40 mg PO DAILY #30 capsule 01/12/16 Furosemide [Lasix*] 40 mg PO BID #60 tab 01/12/16 Gabapentin [Neurontin*] 100 mg PO TID #90 cap 01/12/16 Hydrocodone 7.5/APAP 325 [[place] 7.5/325 mg*] 1 tab PO Q4H PRN #60 tab 01/12/16 Iron/FA/Vit B-Com W/C [Hemocyte Plus*] 1 tab PO BIDWM #60 tab 01/12/16 Levothyroxine [Synthroid*] 50 mcg PO DAILY #30 tablet 01/12/16 Tramadol HCl [Ultram] 50 mg PO Q4HR PRN #60 tablet 01/12/16 Zolpidem Tartrate [Ambien*] 5 mg PO BEDTIME PRN PRN #30 tablet 01/12/16 - Past Medical/Surgical History Diabetic: No -: HTN -: Hypothyroidism -: Depression -: Sciatica -: End Stage Chronic Renal Disease, Neph-Dr. Pereira -: DDD/DJD of the spine -: Spinal stenosis -: Appy -: Hysterectomy -: Cataract removal Psychosocial/ Personal History: . - Family History Brother -: Heart disease - Social History Smoking Status: Never smoker Alcohol use: No CD- Drugs: No Caffeine use: Yes Place of Residence: Home Review of Systems General: Weakness, Malaise, As per HPI Eyes: Conjunctivae Inflammation ENT: As per HPI Respiratory: As per HPI Cardiovascular: As per HPI Gastrointestinal: Nausea, As per HPI Genitourinary: Unremarkable Musculoskeletal: Unremarkable Integumentary: Unremarkable Neurological: Weakness, As per HPI Lymphatics: Unremarkable Physical Examination - Physical Exam General: Alert, In no apparent distress, Oriented x3, Cooperative HEENT: Atraumatic, Normocephalic, Other (Mild exudate noted to the eyes bilateral. Conjunctiva slightly erythematous. Some swelling noted to the eyelids.) Neck: Supple, No Thyromegaly Respiratory: Crackles/rales (Crackles to the bases) Cardiovascular: Normal pulses, Regular rate/rhythm Gastrointestinal: Normal bowel sounds, Soft and benign, Non-distended, No ascites, No tenderness, No masses, No rebound, No guarding Musculoskeletal: No erythema, No tenderness, No warmth Integumentary: No tenderness/swelling, No erythema, No warmth, No cyanosis Neurological: Normal speech, Normal strength at 5/5 x4 extr, Normal tone, Normal affect - Studies Laboratory Data (last 24 hrs) 01/22/18 11:00: PT 12.3, INR 1.04, APTT 30.8 01/22/18 11:00: WBC 5.3, Hgb 11.7 L, Hct 33.1 L, Plt Count 247 01/22/18 11:00: Sodium 137, Potassium 4.4, BUN 76 H, Creatinine 5.20 H*, Glucose 102, Magnesium 2.3, Total Bilirubin 0.5, AST 22, ALT 14, Alkaline Phosphatase 97, Lipase 1173 H Assessment and Plan - Plan Impression: Fatigue and confusion likely related to acute on chronic end-stage renal disease Acute conjunctivitis, bilateral Hypertension Pulmonary edema secondary to chronic end-stage renal disease Depression with anxiety Hypothyroidism Neuropathy with history of chronic back pain Elevated lipase likely related to acute on chronic end-stage renal disease Plan: Fatigue and confusion likely related to acute on chronic end-stage renal disease : Will provide Lasix 20 mg IV twice daily. Will monitor renal function. Nephrology consulted. Patient has seen Nephrology in the past. She does not desire dialysis. Will have nephrology further address this in detail. Hypertension: Will provide IV hydralazine for better blood pressure control. Will continue monitor and adjust appropriately. Acute conjunctivitis, bilateral: Will provide Cipro eyedrops. Pulmonary edema secondary to chronic end-stage renal disease: Patient had some crackles to the bases. Will continue with Lasix 20 mg IV twice daily. Will provide 1500 cc per day fluid restriction. Will recheck chest x-ray. Depression with anxiety: Will restart home medication. Hypothyroidism: Will restart home medication. Will check tsh and free T4. Neuropathy with history of chronic back pain: Will continue with her Neurontin medication as needed. Elevated lipase likely related to acute on chronic end-stage renal disease: Patient without any significant abdominal pain or vomiting. Will monitor closely. Discharge Plan: Home Plan to discharge in: 48 Hours - Advance Directives Does patient have a Living Will: No Does patient have a Durable POA for Healthcare: No - Code Status/Comfort Care Code Status Assessed: Yes (Patient is DNR.) Time Spent Managing Pts Care (In Minutes): 55
[2018-01-22 16:25] LABS: Urine Blood 1+ (NEG); Urine Glucose NEGATIVE (NEG); Urine Protein 3+ (NEG); Urine pH 5.5 (5.0-7.0)
[2018-01-22 16:41] LABS: Thyroid Stimulating Hormone 4.33 uIU/mL (0.360-3.740)
[2018-01-22] MEDS: CIPROFLOXACIN 0.3% ML OPHTH OPTH SCH ×2 (18:00→20:04)
[2018-01-22] MEDS: FUROSEMIDE 20 MG/ 2ML VIAL IV SCH (18:04)
[2018-01-22 18:05] VITALS: BMI 20.2
[2018-01-22] MEDS: SODIUM BICARB 325 MG TAB PO SCH (20:04)
[2018-01-22] MEDS: HYDRALAZINE HCL 20 MG/ML VIAL IV PRN (20:04)
[2018-01-22] MEDS ORDERED: TRAZODONE 50 MG TABLET PO PRN (21:25)
[2018-01-22 22:30] LABS: Urine Appearance CLEAR; Urine Bilirubin NEGATIVE (NEG); Urine Blood NEGATIVE (NEG); Urine Color YELLOW; Urine Glucose 1+ (NEG); Urine Protein 2+ (NEG); Urine Urobilinogen 0.2 mg/dL (0.2-1.0); Urine pH 5.5 (5.0-7.0)
[2018-01-22 23:24] LABS: Urine Microscopic Reflex ORDER UMIC
[2018-01-22 23:51] LABS: Urine Culture Reflex Order NOT NEEDED
[2018-01-22 23:58] LABS: Urine Bacteria <20 /HPF (<20); Urine RBC NONE SEEN /HPF (NONE SEEN)
[2018-01-23] MEDS: ACETAMINOPHEN 500 MG TAB PO PRN ×3 (01:48→12:27)
[2018-01-23 04:14] LABS: Absolute Lymphocytes (CBC) 1.6 K/uL (0.7-4.9); Absolute Monocytes 0.4 K/uL (0.1-1.3); Absolute Neutrophil 3.4 K/uL (1.8-8.0); Basophils % 0.7 % (0-1.3); Eosinophils % 3.1 % (0-4.4); Hematocrit 31.1 % (36.0-45.0); MCH 31.5 pg (27.0-35.0); MCV 91.4 fL (80-100); MPV 8.8 fL (7.6-11.3); Monocytes % 7.8 % (3.3-12.3)
[2018-01-23 04:37] LABS: Albumin 3.4 g/dL (3.4-5.0); Bilirubin Total 0.3 mg/dL (0.2-1.0); Magnesium 2.1 mg/dL (1.8-2.4); Potassium 4.1 mmol/L (3.5-5.1)
[2018-01-23] MEDS ORDERED: LEVOTHYROXINE SOD 0.088 MG TAB PO SCH (06:30)
[2018-01-23] MEDS ORDERED: PANTOPRAZOLE 40MG TABLET PO SCH (07:30)
[2018-01-23] MEDS ORDERED: NA CHLORIDE 5% Opth Soln 150 DROPS/15 ML BTL EACH EYE PRN (07:33)
[2018-01-23] MEDS: CIPROFLOXACIN 0.3% ML OPHTH OPTH SCH ×2 (07:49→13:58)
[2018-01-23] MEDS: HYDRALAZINE HCL 20 MG/ML VIAL IV PRN (07:49)
[2018-01-23] MEDS: SODIUM BICARB 325 MG TAB PO SCH ×2 (07:49→13:58)
[2018-01-23] MEDS: FUROSEMIDE 20 MG/ 2ML VIAL IV SCH (07:50)
[2018-01-23] MEDS ORDERED: ASPIRIN EC 81 MG TAB PO SCH (08:00)
[2018-01-23] MEDS ORDERED: INFLUENZA VACCINE (for 3y+) 0.5 ML DOSE IMVAC ONE (09:00)
[2018-01-23] MEDS ORDERED: FLUOXETINE 20 MG CAP PO SCH (09:00)
--- NOTE | 2018-01-23 12:10 | P.PN ---
Subjective Date of Service: 01/23/18 Primary Care Provider: Dr. Pereira Chief Complaint: Fatigue and confusion Subjective: Doing well Physical Examination - Vital Signs Temperature: 97.5 F Blood Pressure: 199/76 Pulse: 70 Respirations: 18 Pulse Ox (%): 98 - Physical Exam General: Alert, In no apparent distress, Oriented x3, Cooperative HEENT: Other (Erythema, swelling to the conjunctivae improved.) Neck: Supple Respiratory: Clear to auscultation bilaterally, Normal air movement Cardiovascular: Normal pulses, Regular rate/rhythm Gastrointestinal: Normal bowel sounds, Soft and benign, Non-distended, No tenderness, No masses, No rebound, No guarding Musculoskeletal: No erythema, No tenderness, No warmth Integumentary: No tenderness/swelling, No erythema, No warmth, No cyanosis Neurological: Normal speech, Normal strength at 5/5 x4 extr, Normal tone, Normal affect - Studies Laboratory Data (last 24 hrs) 01/22/18 11:00: Sodium 137, Potassium 4.4, BUN 76 H, Creatinine 5.20 H*, Glucose 102, Magnesium 2.3, Total Bilirubin 0.5, AST 22, ALT 14, Alkaline Phosphatase 97, Lipase 1173 H Medications List Reviewed: Yes Assessment & Plan Discharge Plan: Home Plan to discharge in: 24 Hours Physician Review Additional Text: Impression: Fatigue and confusion likely related to acute on chronic end-stage renal disease Acute conjunctivitis, bilateral Hypertension Pulmonary edema secondary to chronic end-stage renal disease Depression with anxiety Hypothyroidism Neuropathy with history of chronic back pain Elevated lipase likely related to acute on chronic end-stage renal disease Plan: Fatigue and confusion likely related to acute on chronic end-stage renal disease : Patient doing better with Lasix 20 mg IV twice daily. Renal function unchanged. Case discussed at length with patient concerning the need for chronic dialysis. This has been addressed in the past by her nephrology to the patient as outpatient. Patient has refused dialysis in the past. She continues to refuse dialysis at this time. Options include no dialysis and hospice at discharge verses initiation of chronic dialysis. Patient will continue with 1500 cc per day fluid restriction. Will discuss with nephrology about possible discharge later today with hospice if she continues to decline dialysis. Advanced directives address in detail with patient yesterday. Patient is DNR. Hypertension: Will add hydralazine 50 mg 1 pill twice daily. Will provide IV hydralazine for better blood pressure control. Will continue monitor and adjust appropriately. Acute conjunctivitis, bilateral: This has improved. Will provide Cipro eyedrops. Pulmonary edema secondary to chronic end-stage renal disease: Patient had some crackles to the bases. Will continue with Lasix 20 mg IV twice daily. Patient will need to continue with Lasix as an outpatient. Will provide 1500 cc per day fluid restriction. Will recheck chest x-ray. Depression with anxiety: Will continue with her medication. Hypothyroidism: Will continue with her medication. Medication has been adjusted recently. Neuropathy with history of chronic back pain: Will continue with her Neurontin medication as needed. Elevated lipase likely related to acute on chronic end-stage renal disease: Patient without any significant abdominal pain or vomiting. Will monitor closely. Time Spent Managing Pts Care (In Minutes): 55
--- NOTE | 2018-01-23 14:38 | P.DS ---
Admission Date: 01/22/18 Discharge Date: 01/23/18 Primary Care Provider: Dr. Pereira Disposition: ROUTINE DISCHARGE Discharge Condition: GOOD Reason for Admission: Fatigue and confusion Consultations: Nephrology-Dr. Pereira Procedures: Abdominal US: CLINICAL HISTORY: Abdominal pain, pancreatitis history COMPARISON: None. FINDINGS: No gallstones, sludge or other abnormalities within the gallbladder lumen. There is no wall thickening or pericholecystic fluid. No common duct stone or biliary tree dilatation identified. IMPRESSION: Normal gallbladder and biliary tree ultrasound. CT brain: No acute abnormality noted Medical Problem List: Fatigue and confusion likely related to acute on chronic end-stage renal disease Acute conjunctivitis, bilateral Hypertension Pulmonary edema secondary to chronic end-stage renal disease Depression with anxiety Hypothyroidism Neuropathy with history of chronic back pain Elevated lipase likely related to acute on chronic end-stage renal disease Anemia of chronic disease Brief History of Present Illness: 87-year-old female presented to the emergency room with fatigue and possible confusion. Most information came from the ER physician and patient. Patient reports that she has been feeling weak over the last several days. Some nausea but no vomiting noted. She has had poor appetite. No abdominal pain noted. Blood pressures have been elevated. Patient with end-stage renal disease. Patient does not desire to be on dialysis. She also reports some swelling to her eyes with exudate. Family has reported some confusion. In the ER patient evaluated. Head CT unremarkable. Abdominal ultrasound unremarkable. Lipase elevated at 1173. White count 5.3, hemoglobin 11.7. BUN of 76, creatinine 5.2 with a GFR of 8. Bicarb 18. Glucose 102. Sodium 137, potassium 4.4. Patient was admitted for further evaluation. When I saw the patient ER, she appeared comfortable. No confusion was noted. She was able to answer questions appropriately. Patient understands that she has end-stage renal disease. She does not desire dialysis. She recently saw all her PCP to adjust medication. She is to be taking Lasix 40 mg 3 times a day but only takes it as needed. Other medications include sodium bicarbonate, levothyroxine and Prozac. Blood pressures were elevated in the ER. This has been monitored as an outpatient. She does not take medication for this. Hospital Course: Patient presented with fatigue and confusion likely secondary to acute on chronic end-stage renal disease. Patient was treated with diuresis. Patient did well during her stay. Renal function has declined over time. Patient requiring chronic dialysis. This was addressed in detail with the patient. Patient refuses dialysis at this time. This has been addressed multiple times by nephrology as an outpatient. Advanced directives also address in detail. Patient is DNR. At discharge patient will continue with Lasix 40 mg 1 pill twice daily. Patient will also continue with a 1500 cc per day fluid restriction and low-salt diet. Recommendation on no further use of nonsteroidal anti-inflammatories. Future medications will need to be renally dosed. Recommendation is for the patient to follow up with nephrology in 1 week to further address her condition. Nephrology to further encourage chronic dialysis or consider hospice as an outpatient if the patient continues to decline and refuses dialysis. Patient has hypertension. Medication added. At discharge she will continue with hydralazine 50 mg 1 pill twice daily. Recommendation is to maintain blood pressures less 150/80. Further adjustment can be done by nephrology. Patient had acute bacterial conjunctivitis. At discharge she will continue with Cipro eyedrops 1 drop 4 times a day for 5 more days. Patient may continue with saline eyedrops as needed. Patient had pulmonary edema likely from chronic end-stage renal disease. Patient received diuresis and did well. As recommended above patient will continue with Lasix 40 mg 1 pill twice daily. She will continue with a 1500 cc per day fluid restriction at home. Patient has depression with anxiety. Patient will continue with her medication : Prozac 40 mg daily and alprazolam 1mg 1 pill twice daily as needed. Medication can be refilled by her PCP. Patient has hypothyroidism. Medication had been recently adjusted. At discharge she will continue with Levoxyl 88 mcg daily. Further adjustment can be done by nephrology. Patient with history of neuropathy and chronic back pain. Patient will continue with Neurontin 300 mg daily. Further adjustment in medication can be done by nephrology. Patient had elevated lipase level likely related to her chronic end-stage renal disease. This has improved. Abdominal ultrasound unremarkable. This can be followed up as an outpatient. No intervention required. Patient with anemia chronic disease. This can be monitored as an outpatient by nephrology. Patient found to have hyperlipidemia. LDL elevated at 144. At discharge Lipitor 10 mg daily has been added. This can be further monitored and addressed by her product design specialist. Vital Signs/Physical Exam: Temp Pulse Resp BP Pulse Ox 97.5 F 70 18 199/76 H 98 01/23/18 12:14 01/23/18 12:14 01/23/18 12:14 01/23/18 12:14 01/23/18 12:14 General: Alert, In no apparent distress, Oriented x3, Cooperative HEENT: Atraumatic Neck: Supple Respiratory: Clear to auscultation bilaterally, Normal air movement Cardiovascular: Normal pulses, Regular rate/rhythm Gastrointestinal: Normal bowel sounds, Soft and benign, Non-distended, No tenderness, No masses, No rebound, No guarding Musculoskeletal: No erythema, No tenderness, No warmth Integumentary: No tenderness/swelling, No erythema, No warmth, No cyanosis Neurological: Normal speech, Normal strength at 5/5 x4 extr, Normal tone, Normal affect Laboratory Data at Discharge: WBC 5.7 K/uL (4.3-10.9) 01/23/18 03:42 Hgb 10.7 g/dL (12.0-15.0) L 01/23/18 03:42 Hct 31.1 % (36.0-45.0) L 01/23/18 03:42 Plt Count 209 K/uL (152-406) 01/23/18 03:42 PT 12.3 SECONDS (9.5-12.5) 01/22/18 11:00 INR 1.04 01/22/18 11:00 APTT 30.8 SECONDS (24.3-36.9) 01/22/18 11:00 Sodium 140 mmol/L (136-145) 01/23/18 03:42 Potassium 4.1 mmol/L (3.5-5.1) 01/23/18 03:42 BUN 82 mg/dL (7-18) H 01/23/18 03:42 Creatinine 5.00 mg/dL (0.55-1.3) H 01/23/18 03:42 Glucose 97 mg/dL (74-106) 01/23/18 03:42 Magnesium 2.1 mg/dL (1.8-2.4) 01/23/18 03:42 Total Bilirubin 0.3 mg/dL (0.2-1.0) 01/23/18 03:42 AST 19 U/L (15-37) 01/23/18 03:42 ALT 11 U/L (12-78) L 01/23/18 03:42 Alkaline Phosphatase 92 U/L (45-117) 01/23/18 03:42 Triglycerides 96 mg/dL (<150) 01/23/18 03:42 Cholesterol 227 mg/dL (<200) H 01/23/18 03:42 HDL Cholesterol 64 mg/dL (40-60) H 01/23/18 03:42 Cholesterol/HDL Ratio 3.55 01/23/18 03:42 Lipase 1025 U/L (73-393) H 01/23/18 03:42 Home Medications: ALPRAZolam [Alprazolam] 1 mg PO BID PRN 01/23/18 Atorvastatin Calcium [Lipitor] 10 mg PO BEDTIME #30 tab 01/23/18 Ciprofloxacin HCl [Ciprofloxacin 0.3% Ophth [place]] 1 drops OPTH QID #1 btl Fluoxetine HCl [Prozac] 40 mg PO DAILY 01/23/18 Furosemide [Lasix] 40 mg PO BIDL #60 tab 01/23/18 Gabapentin [Neurontin*] 1 tab PO DAILY 01/23/18 Hydralazine HCl 50 mg PO BID #60 tablet 01/23/18 Levothyroxine [Synthroid*] 1 tab PO DAILY 01/23/18 New Medications: Atorvastatin Calcium [Lipitor] 10 mg PO BEDTIME #30 tab Ciprofloxacin HCl [Ciprofloxacin 0.3% Ophth [place]] 1 drops OPTH QID #1 btl Furosemide [Lasix] 40 mg PO BIDL #60 tab Hydralazine HCl 50 mg PO BID #60 tablet Patient Discharge Instructions: 1. Patient will need to follow with the PCP in 1 week to follow up this hospitalization. 2. Patient presented with fatigue and confusion likely secondary to acute on chronic end-stage renal disease. Patient was treated. Patient did well during her stay. Renal function has declined over time. Patient requiring chronic dialysis. This was addressed in detail with the patient. Patient refuses dialysis at this time. This has been addressed multiple times by nephrology as an outpatient. Advanced directives also address in detail. Patient is DNR. At discharge patient will continue with Lasix 40 mg 1 pill twice daily. Patient will also continue with a 1500 cc per day fluid restriction and low-salt diet. Recommendation on no further use of nonsteroidal anti-inflammatories. Future medications will need to be renally dosed. Recommendation is for the patient to follow up with nephrology in 1 week to further address her condition. Nephrology to further encourage chronic dialysis or consider hospice as an outpatient if the patient continues to decline and refuses dialysis. 3. Patient has hypertension. Medications added. At discharge she will continue with hydralazine 50 mg 1 pill twice daily. Recommendation is to maintain blood pressures less 150/80. Further adjustment can be done by nephrology. 4. Patient had acute bacterial conjunctivitis. At discharge she will continue with Cipro eyedrops 1 drop 4 times a day for 5 more days. Patient may continue with saline eyedrops as needed. 5. Patient had pulmonary edema likely from chronic end-stage renal disease. Patient received diuresis and did well. As recommended above patient will continue with Lasix 40 mg 1 pill twice daily. She will continue with a 1500 cc per day fluid restriction at home. 6. Patient has depression with anxiety. Patient will continue with her medication Prozac 40 mg daily and alprazolam 1 mg pill twice daily as needed. Medication can be refilled by her PCP. 7. Patient has hypothyroidism. Medication had been recently adjusted. At discharge she will continue with Levoxyl 88 mcg daily. Further adjustment can be done by nephrology. 8. Patient with history of neuropathy and chronic back pain. Patient will continue with Neurontin 300 mg 1 pill daily as needed for pain. Further adjustment in medication can be done by nephrology. 9. Patient had elevated lipase level likely related to her chronic end-stage renal disease. This has improved. Abdominal ultrasound unremarkable. This can be followed up as an outpatient. No intervention required. 10. Patient with anemia chronic disease. This can be monitored as an outpatient by nephrology. 11. Patient found to have hyperlipidemia. LDL elevated at 144. At discharge Lipitor 10 mg daily has been added. This can be further monitored and addressed by her product design specialist. Diet: Renal Activity: Ad karma Time spent managing pt's care (in minutes): 55
[2018-01-23] MEDS ORDERED: ALPRAZOLAM 1 MG TABLET PO PRN (15:11)
[2018-01-23 16:54] VITALS: BP 126/60; TEMP 98.7
[2018-01-23 16:55] VITALS: O2SAT 98
[2018-01-23] MEDS ORDERED: ENOXAPARIN 30 MG/0.3 ML SQ SCH (17:00)
[2018-01-23] MEDS ORDERED: HYDRALAZINE HCL 25 MG TABLET PO SCH (21:00)
[2018-01-24] MEDS ORDERED: GABAPENTIN 300 MG CAP PO SCH (09:00)
[2018-01-24] MEDS ORDERED: FLUOXETINE 20 MG CAP PO SCH (09:00)
[2018-01-24] MEDS ORDERED: HOME MED 1 EA UNK (Fluoxetine Hcl [Prozac] 40 MG) PO SCH (09:00)
[2018-01-25 19:05] LABS: HBsAG Nonreactive (Nonreactive)
== END 2018-01-23 17:01 | disposition home health service (06) ==
LOC: ER 10:33 → ERHOLD 15:26 → 4TH 17:01
PROVIDERS: ADMIT Family Medicine; ATTEND Family Medicine
DX: R53.83 Other fatigue (principal); R41.0 Disorientation, unspecified; I12.0 Hypertensive chronic kidney disease with stage 5 chronic kidney disease or end stage renal disease; N18.6 End stage renal disease; H10.33 Unspecified acute conjunctivitis, bilateral; F41.8 Other specified anxiety disorders; E03.9 Hypothyroidism, unspecified; G62.9 Polyneuropathy, unspecified; D63.1 Anemia in chronic kidney disease; E78.5 Hyperlipidemia, unspecified; Z23 Encounter for immunization; Z66 Do not resuscitate
CPT/HCPCS: 36415; 70450; 76705; 80048; 80053; 80061; 80076; 80307 ×8; 82550; 82553; 83605; 83690 ×2; 83735 ×2; 84439; 84443; 84484; 85025 ×2; 85610; 85730; 86704; 86706; 86803; 87040 ×4; 87088; 87340; 93005; 96361; 96365; 97163; 99285; G0008; G0378 ×2; J0360 ×2; J0696; J0744; J1940 ×2; Q2035; 81003; 81015; 87086

== ENCOUNTER 2018-03-14 10:56 | Emergency (ER) | payer OTHER ==
[2018-03-14] MEDS ORDERED: NA CHLORIDE 0.9% 500 ML ONE (11:49)
[2018-03-14 12:16] LABS: Absolute Lymphocytes (CBC) 0.7 K/uL (0.7-4.9); Absolute Monocytes 1.1 K/uL (0.1-1.3); Absolute Neutrophil 8.6 K/uL (1.8-8.0); Basophils % 0.1 % (0-1.3); Eosinophils % 1.5 % (0-4.4); Hematocrit 26.3 % (36.0-45.0); Lymphocytes % 6.4 % (15.3-44.8); MCH 32.2 pg (27.0-35.0); MCV 93.6 fL (80-100); MPV 8.9 fL (7.6-11.3); Monocytes % 10.4 % (3.3-12.3); RBC Red Blood Cell Count 2.81 M/uL (3.86-4.86)
[2018-03-14 12:23] LABS: Protime INR 1.13
--- NOTE | 2018-03-14 12:36 | EKG ---
Test Date: 2018-03-14 Test Time: 11:52:29 Cottage Attendant: THI MEASUREMENT RESULTS: Intervals: Rate: 66 [place]: 140 QRSD: 80 QT: 394 QTc: 413 [place]: P: 71 [place]: 140 QRS: -15 T: 69 INTERPRETIVE STATEMENTS: Normal sinus rhythm Possible Anterior infarct, age undetermined Abnormal ECG Compared to ECG 01/22/2018 11:03:03 Myocardial infarct finding now present Left anterior fascicular block no longer present Electronically Signed On 03-14-18 12:36:07 CERTIFIED RESIDENTIAL MEDICATION AIDE by Wale Rhodes
--- NOTE | 2018-03-14 12:52 | RAD REPORT ---
EXAM DESCRIPTION: CT - Head Brain Wo Cont - 03/14/2018 12:42 pm CLINICAL HISTORY: Alteration of awareness/confusion COMPARISON: January 2018 TECHNIQUE: Computed axial tomography of the head was obtained. IV contrast was not requested. All CT scans are performed using dose optimization technique as appropriate and may include automated exposure control or mA/KV adjustment according to patient size. FINDINGS: An intracranial bleed is not seen . The ventricles are normal in caliber. No extra-axial fluid collection is noted. Mild to moderate low-density areas within periventricular, deep and subcortical white matter likely represent ischemic changes secondary to small vessel disease . Fluid within the sinuses/ mastoids is not seen. IMPRESSION: No acute intracranial abnormality is seen. If patient's symptoms persist MRI of the bra in would be recommended.
--- NOTE | 2018-03-14 13:03 | RAD REPORT ---
EXAM DESCRIPTION: CT - Abdomen Pelvis Wo Contrast - 03/14/2018 12:43 pm CLINICAL HISTORY: Abdominal pain COMPARISON: 2012 TECHNIQUE: Computed axial tomography of the abdomen and pelvis was obtained. IV and oral contrast we re not requested. All CT scans are performed using dose optimization technique as appropriate and may include automated exposure control or mA/KV adjustment according to patient size. FINDINGS: The evaluation of solid organs, vessels and bowel is limited secondary to the lack of con trast administration. The liver, spleen, pancreas, and adrenals appear grossly normal. Bilateral renal cortical thinning likely secondary to prior inflammation. Hydronephrosis is not seen. There is no evidence of diverticulitis. Ill-defined fluid within the fat of the right cardiophrenic region unchanged from August 2017. Mild chronic appearing left lower lobe opacities. IMPRESSION: No acute intraabdominal abnormality is displayed.
[2018-03-14 13:12] LABS: Albumin 2.6 g/dL (3.4-5.0); Bilirubin Direct 0.2 mg/dL (0-0.2); Bilirubin Total 0.4 mg/dL (0.2-1.0); Magnesium 2.1 mg/dL (1.8-2.4)
[2018-03-14 13:15] LABS: Potassium 2.9 mmol/L (3.5-5.1)
[2018-03-14 13:17] LABS: Troponin I 2.24 ng/mL (0.0-0.045)
[2018-03-14] MEDS ORDERED: KCL 20 MEQ/100 mL IVPB 20 MEQ/100 ML BAG IV ONE (13:33)
[2018-03-14] MEDS ORDERED: CEFEPIME 1 GM/100 ML BAG IV ONE (13:33)
[2018-03-14] MEDS ORDERED: NS KCL 20MEQ 1,000 ML IV ONE (13:38)
[2018-03-14] MEDS ORDERED: ASPIRIN 81 MG CHEWABLE TABLET ONE ×2 (13:38→13:50)
[2018-03-14] MEDS ORDERED: FAMOTIDINE 20 MG/2 ML VIAL IV ONE (13:39)
--- NOTE | 2018-03-14 13:43 | ER ---
Nurse's Notes [facility] Name: Evelia Neves Age: 87 yrs Sex: Female : 1930 Arrival Date: 03/14/2018 Time: 10:55 Bed 8 Private MD: Diagnosis: End stage renal disease;Abdominal tenderness;Hypokalemia-2.9;Non-ST elevation (NSTEMI) myocardial infarction;Diarrhea, unspecified Presentation: 03/14 10:57 Presenting complaint: EMS states: Generalized weakness x 2-3 days, abdominal pain x 2 hb days, incontinent of bowel and bladder today. Family called EMS yesterday for poss stroke due to weakness but pt refused transport. Hx HTN, CHR, UTI, ESRD, HD , last HD was Monday. Transition of care: patient was not received from another setting of care. Onset of symptoms is unknown. Risk Assessment: Do you want to hurt yourself or someone else? Patient reports no desire to harm self or others. Care prior to arrival: None. 10:57 Method Of Arrival: [facility] hb 10:57 Acuity: CHAVA 2 hb 11:10 Initial Sepsis Screen: Does the patient meet any 2 criteria? No. Patient's initial sg sepsis screen is negative. Does the patient have a suspected source of infection? No. Patient's initial sepsis screen is negative. Historical: - Allergies: 11:02 Codeine; hb 11:02 Sulfa (Sulfonamide Antibiotics); hb - Home Meds: 11:02 fluoxetine 40 mg Oral cap 1 cap once daily [Active]; furosemide 40 mg Oral tab 1 tab 3 hb times per day [Active]; gabapentin 300 mg Oral cap 1 cap 3 times per day [Active]; levothyroxine 100 mcg tab 1 tab once daily [Active]; sodium bicarbonate and sodium citrate Oral [Active]; - PMHx: 11:02 Hypothyroidism; Hypertension; CHF; ESRD; HD ; hb - Immunization history:: Adult Immunizations up to date. - Social history:: Smoking status: Patient/guardian denies using tobacco. - Ebola Screening: : No symptoms or risks identified at this time. - Family history:: not pertinent. Screenin:02 Abuse screen: Denies threats or abuse. Denies injuries from another. Nutritional hb screening: No deficits noted. Tuberculosis screening: No symptoms or risk factors identified. Fall Risk Total Villarreal Fall Scale indicates High Risk Score (45 or more points). Fall prevention measures have been instituted. Side Rails Up X 2 Frequent Obs/Assessments Occuring As available patient and family educated on Fall Prevention Program and Strategies. Assessment: 11:00 General: Appears in no apparent distress. Behavior is calm, cooperative. Pain: Pain hb currently is 8 out of 10 on a pain scale. Neuro: Level of Consciousness is awake, obeys commands, Oriented to person, place, time, situation, Cleaning Technician are equal bilaterally Moves all extremities. Weakness Speech slow to respond. Facial symmetry appears normal, Pupils are PERRLA, Intact. Cardiovascular: Heart tones S1 S2 present Capillary refill < 3 seconds Patient's skin is warm and dry. Respiratory: Airway is patent Trachea midline Respiratory effort is even, unlabored, Respiratory pattern is regular, symmetrical, Breath sounds are clear bilaterally. GI: Abdomen is flat, non-distended, Bowel sounds present X 4 quads. Abd is soft and non tender X 4 quads. Reports lower abdominal pain, upper abdominal pain. : Reports incontinence. EENT: No signs and/or symptoms were reported regarding the EENT system. Derm: Skin is pink, warm \T\ dry. Musculoskeletal: Reports. 12:00 Reassessment: Patient appears in no apparent distress at this time. No changes from previously documented assessment. Patient and/or family updated on plan of care and expected duration. Pain level reassessed. Patient is alert, oriented x 3, equal unlabored respirations, skin warm/dry/pink. 12:11 Reassessment: Pt transported to radiology via stretcher with tech. Family remains at bedside. 12:40 Reassessment: Pt returned from radiology. NAD. Family at bedside. 13:00 Reassessment: Patient appears in no apparent distress at this time. Patient and/or family updated on plan of care and expected duration. Pain level reassessed. Patient is alert, oriented x 3, equal unlabored respirations, skin warm/dry/pink. 14:00 Reassessment: Patient appears in no apparent distress at this time. No changes from previously documented assessment. Patient and/or family updated on plan of care and expected duration. Pain level reassessed. Patient is alert, oriented x 3, equal unlabored respirations, skin warm/dry/pink. 15:00 Reassessment: Patient appears in no apparent distress at this time. No changes from hb previously documented assessment. Patient and/or family updated on plan of care and expected duration. Pain level reassessed. Patient is alert, oriented x 3, equal unlabored respirations, skin warm/dry/pink. 16:10 Reassessment: Patient appears in no apparent distress at this time. Patient and/or sg family updated on plan of care and expected duration. Pain level reassessed. Patient is alert, oriented x 3, equal unlabored respirations, skin warm/dry/pink. awaiting transport to receiving facility at this time, pt spouse and family member updated on POC and awaiting transport, stated understanding. Vital Signs: 10:59 BP 94 / 74; Pulse 69; Resp 15; Temp 97.7; Pulse Ox 100% on R/A; Pain 8/10; hb 13:08 BP 101 / 59; Pulse 63; Resp 18; Pulse Ox 100% on R/A; hb 14:00 BP 102 / 56; Pulse 62; Resp 16; Pulse Ox 100% on R/A; hb 15:02 BP 101 / 53; Pulse 68; Resp 15; Pulse Ox 100% on R/A; Pain 0/10; hb ED Course: 10:55 Patient arrived in ED. hb 10:59 Triage completed. hb 11:00 Arm band placed on right wrist. hb 11:02 Patient has correct armband on for positive identification. Placed in gown. Bed in low hb position. Call light in reach. Side rails up X2. 11:21 Adeel Cui MD is Attending Physician. hortensia 11:53 Shira Angeles, RN is Primary Nurse. hb 11:55 EKG done, by senior pharmacy technician. reviewed by Adeel Cui MD. sm3 12:00 Initial lab(s) drawn, by nm, sent to lab. First set of blood cultures drawn by me. sg Inserted saline lock: 22 gauge in right forearm, using aseptic technique. Blood collected. 12:42 CT completed. Patient tolerated procedure well. Patient moved to CT via stretcher. sj Patient moved back from CT. 13:03 Second set of blood cultures drawn by me, T\T\S collected, blood band applied to patient. dh3 by venipuncture 23G to left ac. 13:05 CT Abd/Pelvis - Without Cont In Process Unspecified. EDMS 13:05 CT Head Brain wo Cont In Process Unspecified. EDMS 14:08 XRAY Chest (1 view) In Process Unspecified. EDMS 15:10 No provider procedures requiring assistance completed. Patient transferred, IV remains sg in place. intact, No redness/swelling at site. 15:28 Straight cath inserted, using sterile technique, Specimen obtained. 15 Fr. Returned dh3 cloudy urine. Patient tolerated well. 20mL. Administered Medications: Discontinued: NS 0.9% 1000 ml IV at 50 ml/hr continuous 12:02 Drug: NS 0.9% 1000 ml Route: IV; Rate: 50 ml/hr; Site: right forearm; hb 12:35 Drug: NS 0.9% 250 ml Route: IV; Rate: bolus; Site: right antecubital; hb 13:15 Follow up: Response: No adverse reaction; IV Status: Completed infusion; IV Intake: sg 250ml 13:40 Drug: Cefepime 1 grams Route: IVPB; Rate: 200 ml/hr; Infused Over: 30 mins; Site: right hb forearm; 14:40 Follow up: Response: No adverse reaction; IV Status: Completed infusion hb 13:40 Drug: Pepcid 20 mg Route: IVP; Site: right forearm; hb 14:20 Follow up: Response: No adverse reaction sg 13:40 Drug: Aspirin 162 mg Route: PO; hb 14:00 Follow up: Response: No adverse reaction sg 14:30 Drug: Potassium Chloride 20 mEq Route: IV; Rate: per protocol; Site: right antecubital; hb 16:20 Follow up: Response: No adverse reaction; IV Status: Completed infusion sg 16:15 Drug: NS 0.9% with KCl 20 mEq/L 1000 ml Route: IV; Rate: 50 ml/hr; Site: right forearm; sg 17:00 Follow up: Response: No adverse reaction; IV Status: Infusion continued upon admission hb Intake: 13:15 IV: 250ml; Total: 250ml. sg Outcome: 13:43 ER care complete, transfer ordered by MD. bazan 15:10 Transferred by ground EMS to [facility], Transfer form completed. sg 15:10 Condition: stable 15:10 Instructed on the need for transfer, report called to Evelia Jackson RN primary nurse 17:15 Patient left the ED. sg Signatures: Dispatcher [employer] EDMS Levy Pearson RN Adeel Oconnor MD MD cha Jones, Susan sj Baxter, Heather, RN RN Kary Cardoso replaced by [facility]son Nancy Lancaster 3 Corrections: (The following items were deleted from the chart) 11:01 10:57 Presenting complaint: EMS states: Generalized weakness x 2-3 days, abdominal pain hb x 2 days. Family called EMS yesterday for poss stroke due to weakness but pt refused transport. Hx HTN, CHR, UTI, ESRD, HD , last HD was Monday hb
--- NOTE | 2018-03-14 13:44 | EDPHYS ---
Physician Documentation [facility] Name: Evelia Neves Age: 87 yrs Sex: Female : 1930 Arrival Date: 03/14/2018 Time: 10:55 Bed 8 Private MD: ED Physician Adeel Cui HPI: 03/14 12:21 This 87 yrs old Female presents to ER via EMS with complaints of General hortensia Weakness, Abdominal Pain. 12:21 The patient presents to the emergency department with diarrhea, abdominal pain, of the hortensia right upper quadrant, left upper quadrant, right lower quadrant and left lower quadrant. Onset: The symptoms/episode began/occurred 3 day(s) ago. Possible causes: unknown. The symptoms are aggravated by nothing. The symptoms are alleviated by nothing. Associated signs and symptoms: Pertinent positives: abdominal pain, diarrhea. Severity of symptoms: At their worst the symptoms were mild in the emergency department the symptoms are unchanged. The patient has not experienced similar symptoms in the past. Historical: - Allergies: 11:02 Codeine; hb 11:02 Sulfa (Sulfonamide Antibiotics); hb - Home Meds: 11:02 fluoxetine 40 mg Oral cap 1 cap once daily [Active]; furosemide 40 mg Oral tab 1 tab 3 hb times per day [Active]; gabapentin 300 mg Oral cap 1 cap 3 times per day [Active]; levothyroxine 100 mcg tab 1 tab once daily [Active]; sodium bicarbonate and sodium citrate Oral [Active]; - PMHx: 11:02 Hypothyroidism; Hypertension; CHF; ESRD; HD ; hb - Immunization history:: Adult Immunizations up to date. - Social history:: Smoking status: Patient/guardian denies using tobacco. - Ebola Screening: : No symptoms or risks identified at this time. - Family history:: not pertinent. ROS: 12:21 Constitutional: Negative for fever, chills, and weight loss, Eyes: Negative for injury, hortensia pain, redness, and discharge, ENT: Negative for injury, pain, and discharge, Neck: Negative for injury, pain, and swelling, Cardiovascular: Negative for chest pain, palpitations, and edema, Respiratory: Negative for shortness of breath, cough, wheezing, and pleuritic chest pain, Back: Negative for injury and pain, : Negative for injury, bleeding, discharge, and swelling, MS/Extremity: Negative for injury and deformity, Skin: Negative for injury, rash, and discoloration, Psych: Negative for depression, anxiety, suicide ideation, homicidal ideation, and hallucinations, Allergy/Immunology: Negative for hives, rash, and allergies, Endocrine: Negative for neck swelling, polydipsia, polyuria, polyphagia, and marked weight changes, Hematologic/Lymphatic: Negative for swollen nodes, abnormal bleeding, and unusual bruising. 12:21 Abdomen/GI: Positive for abdominal pain, diarrhea. 12:21 Neuro: Positive for dizziness, near syncope, weakness. Exam: 12:21 Constitutional: This is a well developed, well nourished patient who is awake, alert, hortensia and in no acute distress. Head/Face: Normocephalic, atraumatic. Eyes: Pupils equal round and reactive to light, extra-ocular motions intact. Lids and lashes normal. Conjunctiva and sclera are non-icteric and not injected. Cornea within normal limits. Periorbital areas with no swelling, redness, or edema. ENT: Nares patent. No nasal discharge, no septal abnormalities noted. Tympanic membranes are normal and external auditory canals are clear. Oropharynx with no redness, swelling, or masses, exudates, or evidence of obstruction, uvula midline. Mucous membranes moist. Neck: Trachea midline, no thyromegaly or masses palpated, and no cervical lymphadenopathy. Supple, full range of motion without nuchal rigidity, or vertebral point tenderness. No Meningismus. Chest/axilla: Normal chest wall appearance and motion. Nontender with no deformity. No lesions are appreciated. Cardiovascular: Regular rate and rhythm with a normal S1 and S2. No gallops, murmurs, or rubs. Normal PMI, no JVD. No pulse deficits. Respiratory: Lungs have equal breath sounds bilaterally, clear to auscultation and percussion. No rales, rhonchi or wheezes noted. No increased work of breathing, no retractions or nasal flaring. Abdomen/GI: Soft, non-tender, with normal bowel sounds. No distension or tympany. No guarding or rebound. No evidence of tenderness throughout. Back: No spinal tenderness. No costovertebral tenderness. Full range of motion. Female : Normal external genitalia. MS/ Extremity: Pulses equal, no cyanosis. Neurovascular intact. Full, normal range of motion. Neuro: Awake and alert, GCS 15, oriented to person, place, time, and situation. Cranial nerves II-XII grossly intact. Motor strength 5/5 in all extremities. Sensory grossly intact. Cerebellar exam normal. Normal gait. Psych: Awake, alert, with orientation to person, place and time. Behavior, mood, and affect are within normal limits. 12:21 Skin: Appearance: Color: pale. Vital Signs: 10:59 BP 94 / 74; Pulse 69; Resp 15; Temp 97.7; Pulse Ox 100% on R/A; Pain 8/10; hb 13:08 BP 101 / 59; Pulse 63; Resp 18; Pulse Ox 100% on R/A; hb 14:00 BP 102 / 56; Pulse 62; Resp 16; Pulse Ox 100% on R/A; hb 15:02 BP 101 / 53; Pulse 68; Resp 15; Pulse Ox 100% on R/A; Pain 0/10; hb MDM: 11:21 Patient medically screened. [facility] 12:25 Data reviewed: vital signs, nurses notes, lab test result(s), EKG, radiologic studies, [facility] CT scan, plain films. 03/14 12:12 Order name: Basic Metabolic Panel; Complete Time: 13:21 [facility] 03/14 12:12 Order name: Liver (Hepatic) Function; Complete Time: 13:21 [facility] 03/14 12:12 Order name: Troponin I; Complete Time: 13:21 [facility] 03/14 12:12 Order name: NT PRO-BNP; Complete Time: 13:21 [facility] 03/14 12:12 Order name: Magnesium; Complete Time: 13:21 [facility] 03/14 11:26 Order name: XRAY Chest (1 view); Complete Time: 15:15 [facility] 03/14 11:26 Order name: CT Abd/Pelvis - Without Cont; Complete Time: 13:12 [facility] 03/14 12:12 Order name: Lipase; Complete Time: 13:21 [facility] 03/14 12:12 Order name: CBC with Automated Diff; Complete Time: 12:54 [facility] 03/14 12:12 Order name: Protime (+INR); Complete Time: 12:54 [facility] 03/14 12:20 Order name: Blood Culture Adult (2) [facility] 03/14 12:25 Order name: CT Head Brain wo Cont; Complete Time: 13:12 [facility] 03/14 12:25 Order name: Type And Screen; Complete Time: 15:15 [facility] 03/14 13:17 Order name: Phosphorus; Complete Time: 15:15 [facility] 03/14 15:16 Order name: Urine Culture [facility] 03/14 16:24 Order name: Urine Dipstick--Ancillary (enter results) 03/14 11:26 Order name: EKG; Complete Time: 12:12 [facility] 03/14 11:26 Order name: Cardiac monitoring; Complete Time: 12:03 [facility] 03/14 11:26 Order name: EKG - Nurse/Tech; Complete Time: 12:03 [facility] 03/14 11:26 Order name: IV Saline Lock; Complete Time: 12:03 [facility] 03/14 11:26 Order name: Labs collected and sent; Complete Time: 12:03 [facility] 03/14 11:26 Order name: O2 Per Protocol; Complete Time: 12:04 [facility] 03/14 11:26 Order name: O2 Sat Monitoring; Complete Time: 12:04 [facility] 03/14 11:26 Order name: Urine Dipstick-Ancillary (obtain specimen); Complete Time: 12:04 [facility] 03/14 13:09 Order name: Diet Regular; Complete Time: 13:10 dh3 Administered Medications: Discontinued: NS 0.9% 1000 ml IV at 50 ml/hr continuous 12:02 Drug: NS 0.9% 1000 ml Route: IV; Rate: 50 ml/hr; Site: right forearm; hb 12:35 Drug: NS 0.9% 250 ml Route: IV; Rate: bolus; Site: right antecubital; hb 13:15 Follow up: Response: No adverse reaction; IV Status: Completed infusion; IV Intake: sg 250ml 13:40 Drug: Cefepime 1 grams Route: IVPB; Rate: 200 ml/hr; Infused Over: 30 mins; Site: right hb forearm; 14:40 Follow up: Response: No adverse reaction; IV Status: Completed infusion hb 13:40 Drug: Pepcid 20 mg Route: IVP; Site: right forearm; hb 14:20 Follow up: Response: No adverse reaction sg 13:40 Drug: Aspirin 162 mg Route: PO; hb 14:00 Follow up: Response: No adverse reaction sg 14:30 Drug: Potassium Chloride 20 mEq Route: IV; Rate: per protocol; Site: right antecubital; hb 16:20 Follow up: Response: No adverse reaction; IV Status: Completed infusion sg 16:15 Drug: NS 0.9% with KCl 20 mEq/L 1000 ml Route: IV; Rate: 50 ml/hr; Site: right forearm; sg 17:00 Follow up: Response: No adverse reaction; IV Status: Infusion continued upon admission hb Disposition: 03/14/18 13:[address] [facility]. Diagnosis are End stage renal disease, Abdominal tenderness, Hypokalemia - 2.9, Non-ST elevation (NSTEMI) myocardial infarction, Diarrhea, unspecified. - Reason for transfer: Higher level of care. - Accept[facility] physician [facility]. - Condition is Serious. - Problem is new. - Symptoms have improved. Signatures: Dispatcher [employer] EDMS Levy Pearson, DOMONIQUE RN Adeel White MD MD cha Baxter, Heather, RN RN Corrections: (The following items were deleted from the chart) 15:01 12:12 BASIC METABOLIC PANEL+C.LAB.BRZ ordered. EDRI EDRI 15:01 12:12 CBC+H.LAB.BRZ ordered. EDRI EDRI 15:01 12:12 HEPATIC FUNCTION+C.LAB.BRZ ordered. EDRI EDRI 15:01 12:12 MAGNESIUM+C.LAB.BRZ ordered. EDRI EDRI 15:01 12:12 PROBNP+C.LAB.BRZ ordered. EDRI EDRI 15:01 12:12 PROTIME (+INR)+COAG.LAB.BRZ ordered. EDRI EDRI 15:01 12:12 TROPONIN (EMERG DEPT USE ONLY)+C.LAB.BRZ ordered. EDRI EDRI 15:01 12:12 LIPASE+C.LAB.BRZ ordered. EDRI EDRI 17:15 13:43 03/14/2018 13:[address] [facility]. Diagnosis is sg End stage renal disease; Abdominal tenderness; Hypokalemia - 2.9; Non-ST elevation (NSTEMI) myocardial infarction; Diarrhea, unspecified. Reason for transfer: Higher level of care. Accepting physician is [facility]. Condition is Serious. Problem is new. Symptoms have improved. hortensia
--- NOTE | 2018-03-14 14:19 | RAD REPORT ---
EXAM DESCRIPTION: RAD - Chest Single View - 03/14/2018 2:08 pm CLINICAL HISTORY: ABDOMINAL DISTENTION Chest pain. COMPARISON: Chest Pa And Lat (2 Views) dated 02/06/2018; Chest Single View dated 09/01/2017; Chest Si ngle View dated 01/04/2016; Chest Single View dated 12/28/2015 FINDINGS: Portable technique limits examination quality. Mild to moderate bilateral pulmonary opacities are present, likely representing pulmonary edema. A sm all left pleural effusion is likely present. The heart is mildly enlarged in size.Right-sided venous catheter its tip in the right atrium. IMPRESSION: Mild to moderate CHF versus volume overload pattern.
[2018-03-14 16:43] LABS: Urine Blood 2+ (NEG); Urine Glucose NEGATIVE (NEG); Urine Protein 3+ (NEG); Urine pH 5.5 (5.0-7.0)
[2018-03-14 18:32] VITALS: TEMP 97.7; O2SAT 100
[2018-03-14 18:36] VITALS: BP 101/53
== END 2018-03-14 17:15 | disposition short-term general hospital (02) ==
LOC: ER 10:56
DX: I21.4 Non-ST elevation (NSTEMI) myocardial infarction (principal); E87.6 Hypokalemia; R19.7 Diarrhea, unspecified; I12.0 Hypertensive chronic kidney disease with stage 5 chronic kidney disease or end stage renal disease; N18.6 End stage renal disease; E03.9 Hypothyroidism, unspecified; I50.9 Heart failure, unspecified; Z88.2 Allergy status to sulfonamides; Z88.5 Allergy status to narcotic agent; Z99.2 Dependence on renal dialysis
CPT/HCPCS: 36415; 51702; 70450; 71045; 74176; 80048; 80076; 81003; 83690; 83735; 83880; 84100; 84484; 85025; 85610; 86850; 86900; 86901; 87040 ×2; 87086; 87088; 93005; 99285; J0692